=== PATIENT | female | born 1955 | race African-American/Black ===

== ENCOUNTER 2023-01-16 13:58 | Inpatient (IN) | payer OTHER ==
[2023-01-16 16:08] VITALS: BMI 18.1
[2023-01-16] MEDS ORDERED: NALOXONE HCL (KLOXXADO) 8 MG SPRAY NS PRN (16:34)
[2023-01-16] MEDS ORDERED: DICYCLOMINE HCL 10 MG CAPSULE PO PRN (16:34)
[2023-01-16] MEDS ORDERED: LOPERAMIDE HCL 2 MG CAPSULE PO PRN (16:34)
[2023-01-16] MEDS ORDERED: ACETAMINOPHEN 325 MG TABLET (FP) PO PRN ×2 (16:34)
[2023-01-16] MEDS ORDERED: MAG HYDROX/AL HYDROX/SIMETH 30 ML UNIT-DOSE CUP PO PRN (16:34)
[2023-01-16] MEDS ORDERED: POLYETHYLENE GLYCOL (HEALTHYLAX) 3350 17 GM PACKET PO PRN (16:34)
[2023-01-16] MEDS ORDERED: BENZOCAINE/MENTHOL (CHLORASEPTIC ) LOZENGE MM PRN (16:34)
[2023-01-16] MEDS ORDERED: LORazepam 2 MG TABLET PO ONE (16:34)
[2023-01-16] MEDS ORDERED: hydrOXYzine PAMOATE 25 MG CAPSULE (FP) PO PRN (16:34)
[2023-01-16] MEDS ORDERED: NICOTINE 10 MG CARTRIDGE (INHALER) IH PRN (16:34)
[2023-01-16] MEDS ORDERED: MAGNESIUM HYDROX 2400MG/30ML ORAL SUSPENSION 30 ML CUP PO PRN (16:34)
[2023-01-16] MEDS ORDERED: BENZONATATE 200 MG CAPSULE PO PRN (16:34)
[2023-01-16] MEDS ORDERED: BISMUTH SUBSALICYLATE 524 MG/30 ML PO PRN (16:34)
[2023-01-16] MEDS ORDERED: LORazepam 1 MG TABLET PO PRN (16:34)
[2023-01-16] MEDS ORDERED: ONDANSETRON *ODT* 4 MG TABLET SL PRN (16:34)
[2023-01-16] MEDS ORDERED: guaiFENesin 600 MG TABLET.ER (FP) PO PRN (16:34)
[2023-01-16] MEDS ORDERED: NALOXONE HCL 0.4 MG/ML VIAL IM PRN (16:34)
[2023-01-16] MEDS ORDERED: LORazepam 2 MG TABLET ONE (16:47)
[2023-01-16] MEDS: INSULIN SLIDING SCALE (NOVOLOG) 1 VIAL SQ SCH (18:45)
[2023-01-16] MEDS: PRENATAL VITAMINS W/ FOLIC ACID TABLET (FP) PO SCH (18:46)
[2023-01-16] MEDS ORDERED: INSULIN (NOVOLOG) ASPART 100 UNITS/ML 10ML VIAL ONE (18:51)
[2023-01-16] MEDS: MELATONIN 5 MG TABLETS PO SCH (22:38)
[2023-01-16] MEDS: THIAMINE HCL 100 MG TABLET (FP) PO SCH (22:38)
[2023-01-16] MEDS: LORazepam 2 MG TABLET PO SCH (22:39)
[2023-01-17] MEDS: LORazepam 2 MG TABLET PO SCH ×4 (06:16→22:31)
[2023-01-17] MEDS ORDERED: INSULIN (NOVOLOG) ASPART 100 UNITS/ML 10ML VIAL ONE (07:52)
[2023-01-17] MEDS: INSULIN SLIDING SCALE (NOVOLOG) 1 VIAL SQ SCH ×3 (07:56→17:32)
[2023-01-17] MEDS: PRENATAL VITAMINS W/ FOLIC ACID TABLET (FP) PO SCH (10:25)
[2023-01-17] MEDS: NICOTINE 7 MG/24 HOURS TOPICAL PATCH TD SCH (10:26)
[2023-01-17] MEDS ORDERED: cloNIDine HCL 0.1 MG TABLET PO PRN (10:35)
[2023-01-17 13:00] LABS: CALCIUM 9.5 mg/dL (8.5-10.1)
[2023-01-17 13:01] LABS: ALBUMIN 2.9 g/dl (3.4-5.0)
[2023-01-17 13:04] LABS: CREATININE 3.2 mg/dL (0.55-1.3); HEMATOCRIT 31.8 % (32.4-45.2); HEMOGLOBIN 10.9 GM/dL (10.7-15.3); MCH 28.3 pg (25.7-33.7); MCHC 34.3 g/dl (32.0-36.0); MEAN CELL VOLUME 82.6 fl (80-96); MEAN PLT VOLUME 7.4 fl (7.5-11.1); PLATELET COUNT 262 10^3/uL (134-434); RBC 3.85 M/mm3 (3.60-5.2); RDW 15.2 % (11.6-15.6); WHITE BLOOD COUNT 6.9 K/mm3 (4.0-10.0)
[2023-01-17 13:06] LABS: BILIRUBIN,TOTAL 0.6 mg/dL (0.2-1); TOT PROT 7.2 g/dl (6.4-8.2)
[2023-01-17] MEDS ORDERED: glipiZIDE-XL 10 MG TAB.ER.24 (FP) PO SCH (13:45)
[2023-01-17] MEDS: amLODIPine BESYLATE 10 MG TABLET (FP) PO SCH (14:09)
[2023-01-17] MEDS: LABETALOL HCL 100 MG TABLET (FP) PO SCH ×2 (14:10→22:31)
[2023-01-17] MEDS: glipiZIDE-XL 5 MG TAB.ER.24 PO SCH (14:47)
[2023-01-17] MEDS: ALBUTEROL SO4 HFA INHALER IH PRN (15:29)
[2023-01-17] MEDS ORDERED: INSULIN (LEVEMIR) 100 UNITS/ML UNITS SQ SCH (22:00)
[2023-01-17] MEDS: THIAMINE HCL 100 MG TABLET (FP) PO SCH (22:31)
[2023-01-17] MEDS: MELATONIN 5 MG TABLETS PO SCH (22:31)
[2023-01-18] MEDS: LORazepam 1 MG TABLET PO SCH ×2 (05:30→10:39)
[2023-01-18] MEDS: glipiZIDE-XL 5 MG TAB.ER.24 PO SCH (06:30)
[2023-01-18] MEDS: INSULIN SLIDING SCALE (NOVOLOG) 1 VIAL SQ SCH ×2 (06:31→11:48)
[2023-01-18] MEDS: ALBUTEROL SO4 HFA INHALER IH PRN ×2 (07:51→14:17)
[2023-01-18] MEDS: PRENATAL VITAMINS W/ FOLIC ACID TABLET (FP) PO SCH (10:38)
[2023-01-18] MEDS: amLODIPine BESYLATE 10 MG TABLET (FP) PO SCH (10:39)
[2023-01-18] MEDS: LABETALOL HCL 100 MG TABLET (FP) PO SCH (10:39)
[2023-01-18] MEDS: NICOTINE 7 MG/24 HOURS TOPICAL PATCH TD SCH (10:39)
[2023-01-18 10:48] LABS: CALCIUM 9.4 mg/dL (8.5-10.1)
[2023-01-18 10:49] LABS: ALBUMIN 3.1 g/dl (3.4-5.0); BLOOD UREA NITROGEN 35.8 mg/dL (7-18)
[2023-01-18 10:52] LABS: CREATININE 3.5 mg/dL (0.55-1.3)
[2023-01-18 10:56] LABS: TOT PROT 7.7 g/dl (6.4-8.2)
[2023-01-18 10:59] LABS: BILIRUBIN,TOTAL 0.4 mg/dL (0.2-1)
[2023-01-18] MEDS ORDERED: INSULIN (NOVOLOG) ASPART 100 UNITS/ML 10ML VIAL ONE (11:45)
[2023-01-18 13:38] VITALS: BP 144/87; PULSE 89; RESP 17; TEMP 97.5
[2023-01-19] MEDS ORDERED: LORazepam 0.5 MG TABLET PO PRN
[2023-01-19] MEDS ORDERED: LORazepam 0.5 MG TABLET PO SCH (05:00)
[2023-01-20] MEDS ORDERED: LORazepam 0.5 MG TABLET PO ONE (05:00)
== END 2023-01-18 15:19 | disposition left against medical advice (07) | DRG 894 ==
LOC: YASAS 13:58 → Y6N 17:14
PROVIDERS: ADMIT Allergy & Immunology; ATTEND Allergy & Immunology
PROC: HZ2ZZZZ Detoxification Services for Substance Abuse Treatment (ICD-10-PCS; principal; 2023-01-16)
DX: F10.230 Alcohol dependence with withdrawal, uncomplicated (principal); F17.210 Nicotine dependence, cigarettes, uncomplicated; F32.A Depression, unspecified; F10.282 Alcohol dependence with alcohol-induced sleep disorder; F41.9 Anxiety disorder, unspecified; E87.6 Hypokalemia; I10 Essential (primary) hypertension; E10.9 Type 1 diabetes mellitus without complications; Z79.4 Long term (current) use of insulin; J45.909 Unspecified asthma, uncomplicated; M54.50 Low back pain, unspecified; R79.89 Other specified abnormal findings of blood chemistry; Z85.118 Personal history of other malignant neoplasm of bronchus and lung; Z99.89 Dependence on other enabling machines and devices; Z88.6 Allergy status to analgesic agent
CPT/HCPCS: 36415; 80053; 82140; 82962; 85027; 86780; 93005; 93010; C9803-CS; U0003; U0005